=== PATIENT | male | born 1985 | race Native Hawaiian/Other Pacific Islander ===

== ENCOUNTER 2020-06-25 10:47 | Emergency (ER) | payer OTHER ==
[~2020-06-25] VITALS: Ht 175.3 cm; Wt 156.5 kg
[2020-06-25] MEDS ORDERED: KAPSPARGO SPRI100 MG PO (11:13)
[2020-06-25 12:43] LABS: PLATELET COUNT 264 K/uL (142-355)
[2020-06-25 12:50] LABS: POTASSIUM 4.2 mmol/L (3.6-5.2)
[2020-06-25 15:30] VITALS: BP 160/97; TEMP 96.9
== END 2020-06-25 15:30 | disposition home or self-care (01) ==
LOC: ED 10:47
PROVIDERS: Family Medicine
PROC: 0T9B70Z Drainage of Bladder with Drainage Device, Via Natural or Artificial Opening (ICD-10-PCS; principal; 2020-06-25)
DX: R31.9 Hematuria, unspecified (principal); N32.89 Other specified disorders of bladder
CPT/HCPCS: 51702; 80053; 81000; 85027; 87088; 96372; 99283; J0696; Q9963

== ENCOUNTER 2020-07-16 04:41 | Emergency (ER) | payer OTHER ==
[~2020-07-16] VITALS: Ht 175.3 cm; Wt 156.5 kg
[~2020-07-16 04:41] MED LIST: KAPSPARGO SPRI100 MG PO
[2020-07-16 05:53] LABS: PLATELET COUNT 315 K/uL (142-355)
[2020-07-16 06:01] LABS: POTASSIUM 3.4 mmol/L (3.6-5.2)
[2020-07-16 06:30] VITALS: BP 163/93; TEMP 97.4
== END 2020-07-16 06:30 | disposition home or self-care (01) ==
LOC: ED 04:41
PROVIDERS: Family Medicine
DX: R31.9 Hematuria, unspecified (principal); N32.89 Other specified disorders of bladder
CPT/HCPCS: 36415; 80053; 85027; 99283

== ENCOUNTER 2020-08-18 19:25 | Emergency (ER) | payer OTHER ==
[~2020-08-18] VITALS: Ht 175.3 cm; Wt 156.5 kg
[2020-08-18 21:30] VITALS: BP 158/89; TEMP 97.6
== END 2020-08-18 21:30 | disposition home or self-care (01) ==
LOC: ED 19:25
DX: R31.9 Hematuria, unspecified (principal); Z98.890 Other specified postprocedural states; Z46.6 Encounter for fitting and adjustment of urinary device
CPT/HCPCS: 99283; J7040

== ENCOUNTER 2021-03-09 13:45 | Emergency (ER) | payer OTHER ==
[~2021-03-09] VITALS: Ht 175.3 cm; Wt 156.5 kg
[2021-03-09 13:45] VITALS: TEMP 97.8
[2021-03-09 14:06] LABS: PLATELET COUNT 346 K/uL (142-355)
[2021-03-09 14:13] LABS: POTASSIUM 3.8 mmol/L (3.6-5.2)
[2021-03-09 17:58] VITALS: BP 175/82
== END 2021-03-09 17:58 | disposition home or self-care (01) ==
LOC: ED 13:45
PROVIDERS: Hospitalist
DX: R11.2 Nausea with vomiting, unspecified (principal); N43.2 Other hydrocele; R19.7 Diarrhea, unspecified; Z98.890 Other specified postprocedural states
CPT/HCPCS: 36415; 80053; 81000; 83605; 83690; 85027; 96360; 96361; 96365; 96376; 99284; J1170; J1885; J2405; J3370; Q9963

== ENCOUNTER 2021-03-10 06:15 | Emergency (ER) | payer OTHER ==
[~2021-03-10] VITALS: Ht 175.3 cm; Wt 156.5 kg
[2021-03-10 06:20] VITALS: TEMP 98.6
[2021-03-10 07:03] VITALS: BP 144/78
== END 2021-03-10 07:10 | disposition home or self-care (01) ==
LOC: ED 06:15
DX: T83.091A Other mechanical complication of indwelling urethral catheter, initial encounter (principal); Y83.8 Other surgical procedures as the cause of abnormal reaction of the patient, or of later complication, without mention of misadventure at the time of the procedure; Y92.238 Other place in hospital as the place of occurrence of the external cause
CPT/HCPCS: 99282

== ENCOUNTER 2021-09-08 14:01 | Outpatient (CLI) | payer OTHER | END 2021-09-08 19:58 | disposition home or self-care (01) | LOC: RAD 14:01 | PROVIDERS: ATTEND Internal Medicine Hematology & Oncology | DX: C67.9 Malignant neoplasm of bladder, unspecified (principal); M25.552 Pain in left hip ==

== ENCOUNTER 2021-10-12 13:26 | Outpatient (CLI) | payer OTHER | END 2021-10-12 22:09 | disposition home or self-care (01) | LOC: RAD 13:26 | PROVIDERS: ATTEND Physician Assistant | DX: M54.59 Other low back pain (principal) ==

== ENCOUNTER 2021-11-25 17:53 | Emergency (ER) | payer OTHER ==
[~2021-11-25] VITALS: Ht 175.3 cm; Wt 158.8 kg
[2021-11-25 18:46] LABS: PLATELET COUNT 311 K/uL (142-355)
[2021-11-25 19:11] LABS: PARTIAL THROMBOPLASTIN TIME 31.8 SECONDS (24.5-33.6)
[2021-11-25 20:47] VITALS: TEMP 100.2
[2021-11-25 21:40] VITALS: BP 128/90
== END 2021-11-25 21:40 | disposition short-term general hospital (02) ==
LOC: ED 17:53
PROVIDERS: Emergency Medicine
DX: N17.8 Other acute kidney failure (principal); M62.82 Rhabdomyolysis; E87.1 Hypo-osmolality and hyponatremia; C22.9 Malignant neoplasm of liver, not specified as primary or secondary; S32.492A Other specified fracture of left acetabulum, initial encounter for closed fracture; S32.512A Fracture of superior rim of left pubis, initial encounter for closed fracture; S32.592A Other specified fracture of left pubis, initial encounter for closed fracture; Z85.51 Personal history of malignant neoplasm of bladder; Z98.890 Other specified postprocedural states; R74.8 Abnormal levels of other serum enzymes; R74.02 Elevation of levels of lactic acid dehydrogenase [LDH]; E66.09 Other obesity due to excess calories; E66.01 Morbid (severe) obesity due to excess calories; R41.0 Disorientation, unspecified; Z11.52 Encounter for screening for COVID-19; W06.XXXA Fall from bed, initial encounter; Y92.89 Other specified places as the place of occurrence of the external cause
CPT/HCPCS: 80053; 81000; 82550; 83605; 85007; 85027; 85610; 85730; 87040; 87635; 96360; 96361; 96374; 96375; 99285; J1200; J2270; J2405; U0003